=== PATIENT | female | born 1980 | race African-American/Black ===

== ENCOUNTER 2017-07-07 19:02 | Emergency (ER) | payer BC ==
[~2017-07-07] VITALS: Ht 167.6 cm; Wt 77.1 kg
[2017-07-07] MEDS ORDERED: TYLENOL EXTRA500 MG PO (20:16)
[2017-07-07] MEDS ORDERED: BC PO (20:16)
[2017-07-07 20:31] LABS: ABSOLUTE NEUTROPHILS 5.7 thou/uL (1.4-8.2); BASOPHILS 0.5 % (0.0-2.0); EOSINOPHILS 0.1 % (0.0-3.0); HEMATOCRIT 43.1 % (37.0-47.0); HEMOGLOBIN 14.3 gm/dL (12.0-15.0); LYMPHOCYTES 8.9 % (24.0-44.0); MCH 28.1 pg (26.0-34.0); MCHC 33.2 g/dL (28.0-37.0); MCV 84.6 fL (80.0-100.0); PLATELET COUNT 199 thou/uL (150-400); POLYS 86.5 % (36.0-66.0); RBC 5.09 mil/uL (4.20-5.00); RDW 13.5 % (10.5-14.5); WBC 6.6 thou/uL (4.0-11.0)
[2017-07-07 20:35] LABS: CALCIUM 8.8 mg/dL (8.5-10.1); CREATININE 1.3 mg/dL (0.6-1.0); POTASSIUM 3.4 mmol/L (3.5-5.1)
[2017-07-07] MEDS ORDERED: ZOFRAN ODT4 MG PO (22:09)
[2017-07-07] MEDS ORDERED: TAMIFLU75 MG PO (22:09)
[2017-07-07 22:45] VITALS: BP 129/69
== END 2017-07-07 22:45 | disposition home or self-care (01) ==
LOC: ER 19:02
PROVIDERS: Emergency Medicine
DX: J09.X2 Influenza due to identified novel influenza A virus with other respiratory manifestations (principal)